=== PATIENT | female | born 1990 | race Hispanic/Latino ===

== ENCOUNTER 2018-10-17 02:57 | Emergency (ER) | payer SELFPAY ==
[2018-10-17 03:19] VITALS: RESP 16
--- NOTE | 2018-10-17 05:00 | ED PDOC ---
HPI: Chest Pain Time Seen by Provider: 10/17/18 03:26 Chief Complaint (Nursing): Alcohol Ingestion Chief Complaint (Provider): chest pain after fall History Per: Patient History/Exam Limitations: no limitations Additional Complaint(s): 27 y/o F with hx of anxiety and ADHD who presents with chest pain after fall onto her sternum 2 days ago. States that she has been taking 4 Ibuprofen and Aleve for the pain with some relief. She continues to have significant pain. Her friends became concerned about her pain and brought her into ED. She states that she hit the bridge of her nose when she fell but denies bryce head trauma, LOC, dizziness, SOB. Denies HTN, asthma, CAD/CO. Past Medical History Reviewed: Historical Data, Nursing Documentation, Vital Signs Vital Signs: Last Vital Signs Temp 97.6 F 10/17/18 03:15 Pulse 92 H 10/17/18 03:15 Resp 16 10/17/18 03:15 BP 124/80 10/17/18 03:15 Pulse Ox 98 10/17/18 03:15 - Medical History PMH: Anxiety Other PMH: ADHD - Family History Family History: States: Unknown Family Hx - Social History Alcohol: Social - Allergies Allergies/Adverse Reactions: Allergies Allergy/AdvReac Type Severity Reaction Status Date / Time No Known Allergies Allergy Verified 10/17/18 03:19 Review of Systems ROS Statement: Except As Marked, All Systems Reviewed And Found Negative Constitutional: Negative for: Fever Eyes: Negative for: Vision Change Cardiovascular: Positive for: Chest Pain, Light Headedness. Negative for: Palpitations Respiratory: Positive for: Pleuritic Pain. Negative for: Cough Gastrointestinal: Negative for: Nausea Physical Exam - Reviewed Nursing Documentation Reviewed: Yes Vital Signs Reviewed: Yes - Physical Exam Appears: Positive for: Non-toxic (mild intoxicated but coherent) Head Exam: Positive for: ATRAUMATIC Skin: Positive for: Normal Color Cardiovascular/Chest: Positive for: Regular Rate, Rhythm, Other (+ tenderness on palpation of central and lower sternum as well as parasternal, no movement noted on palpation of ribs. No ecchymosis) Respiratory: Positive for: Normal Breath Sounds. Negative for: Crackles, Plerual Rub Gastrointestinal/Abdominal: Positive for: Normal Exam Neurologic/Psych: Positive for: Alert - ECG O2 Sat by Pulse Oximetry: 98 Medical Decision Making Medical Decision Making: EKG CXR Motrin Patient refused CXR due to poor insurance. EKG: sinus, HR 94, normal EKG. Disposition - Clinical Impression Clinical Impression: Chest pain - Patient ED Disposition Is Patient to be Admitted: No Counseled Patient/Family Regarding: Studies Performed, Diagnosis, Rx Given - Disposition Disposition: Routine/Home Disposition Time: 05:22 Condition: STABLE Additional Instructions: Avoid taking Ibuprofen and Aleve together as they work similarly and can cause you very negative GI effects. Can use Tylenol (acetaminophen) and Ibuprofen as needed for pain. Return to ER if you develop SOB or worsening C/P. F/u with your primary care doctor as needed. Instructions: Chest Pain That Is Not Caused by the Heart (DC) Forms: [facility] (Swedish) Print Language: PORTUGUESE
[2018-10-17 05:23] VITALS: BP 122/80; PULSE 86; TEMP 97.9
[2018-10-17 06:06] VITALS: O2SAT 98
--- NOTE | 2018-10-17 13:42 | CARD ---
APPROVED REPORT Date of service: 10/17/2018 EKG Measurement Heart [id number] <Conclusion> Normal sinus rhythm Normal ECG
== END 2018-10-17 05:25 | disposition home or self-care (01) ==
LOC: H.ER 02:57
DX: R07.9 Chest pain, unspecified (principal); F90.9 Attention-deficit hyperactivity disorder, unspecified type